=== PATIENT | male | born 1990 | race Two or more races ===

== ENCOUNTER 2021-03-23 22:01 | Emergency (ER) | payer OTHER ==
[~2021-03-23] VITALS: Ht 167.6 cm; Wt 34.5 kg
[2021-03-23] MEDS ORDERED: IBUPROFEN 800 MG TABLET PO ONE (23:45)
[2021-03-23] MEDS ORDERED: PERTUSS(ACELL),DIPH,TET VAC/PF 0.5 ML SYRINGE IM. ONE (23:45)
[2021-03-24 00:43] VITALS: BP 136/86
== END 2021-03-24 00:49 | disposition home or self-care (01) ==
LOC: EMS 22:04
DX: S93.401A Sprain of unspecified ligament of right ankle, initial encounter (principal); S20.211A Contusion of right front wall of thorax, initial encounter; S80.811A Abrasion, right lower leg, initial encounter; W17.89XA Other fall from one level to another, initial encounter; Y93.89 Activity, other specified; Y92.89 Other specified places as the place of occurrence of the external cause; Y99.8 Other external cause status
CPT/HCPCS: 71046; 90471; 90715; 99283